=== PATIENT | male | born 1970 | race Caucasian/White ===

== ENCOUNTER 2024-10-27 13:09 | Emergency (ER) | payer OTHER ==
[~2024-10-27] VITALS: Ht 182.9 cm; Wt 112.0 kg
[2024-10-27] VITALS (11 sets, daily range): BP systolic 113–142; BP diastolic 80–99
[2024-10-27] MEDS ORDERED: ORPHENADRINE CITRATE 30 MG/ML AMP IM ONE (13:45)
[2024-10-27] MEDS ORDERED: KETOROLAC TROMETHAMINE 30 MG/ML SDV IM ONE (13:45)
[2024-10-27] MEDS ORDERED: predniSONE 20 MG/TAB PO ONE (13:45)
[2024-10-27] MEDS ORDERED: PREDNISONE10 MG PO (15:52)
[2024-10-27] MEDS ORDERED: TRAMADOL HYDROC50 M1 PO (15:52)
[2024-10-27] MEDS ORDERED: NAPROXEN500 MG PO (15:52)
[2024-10-27] MEDS ORDERED: METHOCARBAMOL500 MG PO (15:52)
== END 2024-10-27 16:31 | disposition home or self-care (01) | DRG 552 ==
LOC: ED 13:09
DX: M54.50 Low back pain, unspecified (principal); M47.816 Spondylosis without myelopathy or radiculopathy, lumbar region
CPT/HCPCS: J2360